=== PATIENT | female | born 1980 | race Caucasian/White ===

== ENCOUNTER 2021-10-06 14:16 | Emergency (ER) | payer MEDICAID, SELFPAY ==
[2021-10-06 14:23] VITALS: BP 156/96; PULSE 83; RESP 18; TEMP 36.8; O2SAT 100
--- NOTE | 2021-10-06 14:30 | DI.CT_ITS ---
Exam(s) CT CHEST PE ABD PELVIS W EXAM: CT CHEST PE ABD PELVIS W CLINICAL HISTORY: Fall, blunt trauma, L chest/LUQ pain. TECHNIQUE: Imaging Protocol: Axial CT angiography was performed with multi-slice acquisition and m ulti-planar and/or 3D reconstructions. CONTRAST MATERIAL: Intravenous: Omnipaque 350 Contrast volume:4 mL Oral: None COMPARISON: No exams were available for comparison FINDINGS: CHEST: AORTA: The diameter of the ascending thoracic aorta is within normal limits. No evidence of dissecti on. No pericardial effusion. Descending thoracic aorta appears unremarkable. No evidence of abdomi nal aortic aneurysm. No dissection or aneurysm of the common and external iliac arteries. Internal iliac arteries are also patent. PULMONARY ARTERIES: There are no intra-arterial filling defects to suggest the presence of acute pulm onary emboli. LUNGS: There is no evidence of pulmonary infarction.Mild dependent markings in both lungs but no conf luent infiltrates. No ominous pulmonary nodules. There are no pleural effusions. MEDIASTINUM: There is no hilar nor mediastinal adenopathy. CARDIAC: Heart size is normal. There is no pericardial effusion. There is no significant shift of t he interventricular septum.Caliber of the thoracic aorta is within normal limits. OSSEOUS: No significant osseous lesions.Evidence of previous right shoulder surgery at the level of t he glenoid fossa.. ABDOMEN: There is no ascites. LIVER: There are no focal hepatic lesions nor dilatation of intrahepatic ducts. GALLBLADDER/BILIARY: No obvious gallbladder pathology. CBD is not dilated. PANCREAS: No evidence of pancreatic mass nor dilatation of the pancreatic duct. SPLEEN: Spleen is not enlarged. There are no intrasplenic lesions. Splenic and portal veins are soria nt. ADRENALS: There are no significant adrenal masses. KIDNEYS:No cysts. No calculi nor hydronephrosis. No solid renal masses. ABDOMINAL AORTA: Abdominal aorta is not enlarged. No dissection LYMPH NODES: There is no retroperitoneal or para-aortic adenopathy. ABDOMINAL WALL/GI: No evidence of significant anterior abdominal wall hernia. No bowel obstruction. PELVIS: LYMPH NODES: There is no intrapelvic nor inguinal adenopathy. GI: No evidence of appendicitis.No evidence of sigmoid diverticulitis. URINARY BLADDER: No calculi nor masses evident REPRODUCTIVE: Uterus normal size. Anteverted. No abnormal adnexal masses. OSSEOUS: No significant osseous lesions. IMPRESSION: 1. No evidence of acute pulmonary emboli nor pulmonary infarction. 2. No evidence of aortic dissection nor pericardial effusion. No evidence of aneurysm of the thoraci c and abdominal aorta. Aortoiliac segments appear unremarkable. No aneurysms of the iliac arteries. 3. No evidence of acute inflammatory process in the abdomen and pelvis. No adenopathy. No ascites. RADIATION DOSE DELIVERED: 870.99mGy.cm Total DLP DATA REPOSITORY: All CT scans at this facility are submitted to the National Radiology Data Registry (NRDR) Dose Index Registry (DIR) with the [employer] (ACR). RADIATION OPTIMIZATION: All CT scans at this facility use at least one of these dose optimization te chniques: automated exposure control; mA and/or kV adjustment per patient size (includes targeted exa ms where dose is matched to clinical indication); or iterative reconstruction.
--- NOTE | 2021-10-06 14:45 | ED.GENADUL_ITS ---
Discharge Plan Disposition Patient Disposition: HOME Condition: Improving Discharge Details Clinical Impression: Left rib fracture Primary Care Provider: Unknown,Unknown ED Provider: Frankie Leigh Home Meds and New Rx's Prescriptions: Continued dextroamphetamine-amphetamine [Adderall] 30 mg Tablet 30 mg PO BID Discharge Instructions Instructions: Rib Fracture (ED) Additional Instructions: Perform deep breaths 10 times an hour while awake, may use incentive spirometer as instructed by nursing staff. Tylenol and ibuprofen as needed for pain. Splint to the area if you feel the need to cough or laugh. Return for any acute concern. Medical Decision Making This is an otherwise healthy 41-year-old female who was [place] the river 2 [place] ago when she slipped on rocks falling and contusing her thigh and then while getting up slipped and fell and contused her left chest and left upper abdomen on high prominent rock. She did not lose consciousness. She has had progressive left chest discomfort and a stabbing-like sensation with deep breaths. No significant abdominal pain and no vomiting. On exam the patient does demonstrate left lateral abdomen tenderness. Must exclude underlying visceral injury, most particularly a bony thorax injury but would consider splenic or underlying lung injury. Patient had screening labs obtained and then referred for CT imaging. Laboratories are reassuring. There is a left fifth rib fracture present. Discussed with patient. She will perform incentive spirometry at home and understands indications to seek reevaluation. HPI General Mode of arrival: ambulatory . Date/Time Provider Initiated Documentation: 10/06/21 14:21 . Limitations to Documentation: no limitations . Information obtained by: patient . History of Present Illness 41 year old F presents to the emergency department with the chief complaint of Left chest discomfort after fall, described as moderate, Quality is described as dull, and is localized to the chest and left. Patient reports no radiation. Patient started experiencing this day(s) and it has been constant. Rest improves symptom(s), Movement worsens symptoms . Patient notes chest pain; denies headaches, nausea/vomiting, shortness of breath, syncope and weakness. Patient did receive the following treatments prior to arrival, none Related Data Home Medications Medication Instructions Recorded Confirmed dextroamphetamine-amphetamine 30 30 mg PO BID 10/06/21 10/06/21 mg tablet (Adderall) Allergies Allergy/AdvReac Type Severity Reaction Status Date / Time No Known Allergies Allergy Unverified 10/06/21 14:25 General Stated Complaint: Trauma JERRY: 3 Review of Systems Narrative: 6 systems reviewed and otherwise negative. Denies head/neck/back injury. PFSH All Active Problems (Updated 10/06/21 @ 16:32 by Frankie Leigh MD) Left rib fracture (Acute) Social History Smoking/Tobacco Use Status: Never Smoking risk assessment performed?: Yes Drug use: Occasionally Substance use type: marijuana Do you feel safe at home: Yes Do you feel safe in your relationship?: Yes Exam Narrative Exam Narrative: GEN: awake, alert, oriented 3. Pleasant, well groomed, interactive. HEAD: Normocephalic, atraumatic ENT: Mucous membranes moist, oropharynx unremarkable, External ear exam unremarkable EYES: PERRL, EOMI NECK: Full ROM, no GRAHAM, no menigismus CHEST/RESP: Left lateral to anterior chest wall tenderness to palpation, no crepitus appreciated, clear to auscultation bilateral, no wheeze/rhonchi/rales CARDIOVASCULAR: RRR, no murmur, rub balaji. 2+ Rad pulse bilateral ABDOMEN: Soft, minimal tenderness left upper quadrant, no rebound or guarding, no mass. +Bowel sounds EXT: Full ROM, no edema, no rash Neuro: Grossly normal neurologic exam, conversant, interactive. Psych: Speech fluent, thoughts congruent, affect normal Course Vital Signs Vital signs: Vital Signs Temperature 36.8 C 10/06/21 14:23 Pulse 83 10/06/21 14:23 Respiratory Rate 18 10/06/21 14:23 Blood Pressure 156/96 H 10/06/21 14:23 Pulse Oximetry 100 10/06/21 14:23 Temperature 36.8 C 10/06/21 14:23 Temperature Source Temporal Artery Scan 10/06/21 14:23 Pulse 83 10/06/21 14:23 Respiratory Rate 18 10/06/21 14:23 Respiratory Effort Non-Labored 10/06/21 14:34 Respiratory Depth Normal 10/06/21 14:34 Respiratory Pattern Normal 10/06/21 14:34 Blood Pressure 156/96 H 10/06/21 14:23 Blood Pressure Position Sitting 10/06/21 14:23 Pulse Oximetry 100 10/06/21 14:23 Oxygen Delivery Method Room Air 10/06/21 14:23 Oxygen Flow Rate 0 10/06/21 14:23 Pain Level 7 10/06/21 14:23 PAWSS Have you Been Recently Intoxicated or Drunk Within the Last 30 days?: No Have you Ever Experienced Previous Episodes of Alcohol Withdrawal?: No Have you ever Experienced Withdrawal Seizures?: No Have you ever Experienced Delirium Tremens(DT)s?: No Have you ever undergone Alcohol Rehabilitation Treatment (i.e, inpt ot outpatient treatment programs)?: No Have you ever Experienced Blackouts?: No Have you ever Combined Alcohol with other Downers within the last 90 days?: No Have you ever Combined Alcohol with any other Substance of Abuse during the last 90 days?: Yes Positive Blood Alcohol level on Presentation? [PCS.BAL]: No Evidence of Increased Autonomic Activity (i.e. HR>120, tremor, sweating, agitation, nausea)?: No Result: 2
[2021-10-06 14:56] VITALS: TEMP 36.5; O2SAT 95
[2021-10-06] MEDS: ACETAMINOPHEN 1,000 MG/100 ML BTL 400 MG IVPB (15:10)
[2021-10-06 15:11] LABS: Abs Immature Grans 0.03 10^3/uL (0.0-0.06); Absolute Basophil Count 0.05 10^3/uL (0.0-0.2); Absolute Eosinophil Count 0.12 10^3/uL (0.0-0.7); Absolute Monocyte Count 0.75 10^3/uL (0.1-0.8); Absolute Neutrophil Count 6.66 10^3/uL (1.2-6.7); Basophils % 0.5; Eosinophils % 1.2; HCT 38.4 % (36.0-46.0); HGB 13.4 g/dL (11.2-15.7); Immature Grans % 0.3; MCH 33.2 pg (27.0-33.0); MCHC 34.9 % (32.0-36.0); MCV 95 fL (80-95); MPV 9.1 fL (8.0-11.0); Monocytes % 7.5; Neutrophils % 66.5; Platelet Count 364 10^3/uL (130-400); RBC 4.04 10^6/uL (3.93-5.22); RDW 12.1 % (11.7-14.6); RDW-SD 42.5 fL; WBC 10.01 10^3/uL (4.4-10.8)
[2021-10-06 15:22] LABS: ALT 34 U/L (14-59); AST 25 U/L (15-37); Albumin 3.5 g/dL (3.4-5.0); Alkaline Phosphatase 74 U/L (46-116); Anion Gap 6.2 mmol/L (3-11); BUN 9 mg/dL (7-18); Bilirubin, Total 0.4 mg/dL (0.2-1.0); CO2 29.8 mmol/L (21.0-32.0); CREATININE 0.7 mg/dL (0.55-1.02); Calcium 8.8 mg/dL (8.5-10.1); Chloride 101 mmol/L (98-107); Glucose 98 mg/dL (74-106); Potassium 4.2 mmol/L (3.5-5.1); Sodium 137 mmol/L (136-145); Total Protein 7.8 g/dL (6.4-8.2)
[2021-10-06] MEDS: Omnipaque 350 MG/ML 100 ML BTL IJ (15:32)
--- NOTE | 2021-10-06 16:23 | DI.VRAD_ITS ---
PROCEDURE INFORMATION: Exam: CTA Chest With Contrast CTA Abdomen With Contrast Exam date and time: 10/06/2021 3:22 PM Age: 41 years old Clinical indication: Left-sided; Abdominal pain; Localized; Left upper quadrant (luq); Patient HX: Fall, blunt trauma, L chest/luq pain TECHNIQUE: Imaging protocol: Computed tomographic angiography of the chest with contrast. Computed tomographic angiography of the abdomen with contrast. 3D rendering (Not supervised by radiologist): MIP and/or 3D reconstructed images were created by the technologist. COMPARISON: No relevant prior studies available. FINDINGS: VASCULATURE: Pulmonary arteries: Normal. No pulmonary emboli. Aorta: No aortic aneurysm. No aortic dissection. Celiac trunk and mesenteric arteries: No occlusion or significant stenosis. Renal arteries: No occlusion or significant stenosis. CHEST: Lungs: Minimal atelectasis left lower lobe posterior costophrenic sulcus. No consolidation. No masses. Pleural spaces: Unremarkable. No pneumothorax. No pleural effusion. Heart: Unremarkable. No cardiomegaly. No pericardial effusion. There is mild displacement of the left lateral 5th rib fracture but I just over 3 mm. No additional rib fractures. No thoracic spine fracture deformity. Mild anterior endplate spurring T3 through T12. ABDOMEN AND PELVIS: Liver: No mass. Gallbladder and bile ducts: Unremarkable. No calcified stones. No ductal dilation. Pancreas: Unremarkable. No mass. No ductal dilation. Spleen: Unremarkable. No splenomegaly. Adrenal glands: Unremarkable. No mass. Kidneys and ureters: Unremarkable. No solid mass. No hydronephrosis. Stomach and bowel: Unremarkable. No obstruction. No mucosal thickening. Intraperitoneal space: Unremarkable. No free air. No significant fluid collection. Lymph nodes: Unremarkable. No enlarged lymph nodes. Bones/joints: Unremarkable. No acute fracture. Soft tissues: Unremarkable. IMPRESSION: Unremarkable CTA chest and abdomen apart from left 5th lateral mildly displaced fracture deformity. Dictated and Authenticated by: Kaden Prasad MD. Ordering:BOWEN David MD
== END 2021-10-06 16:40 | disposition home or self-care (01) ==
PROVIDERS: Emergency Provider Emergency Medicine
DX: S22.32XA Fracture of one rib, left side, initial encounter for closed fracture (principal); W01.0XXA Fall on same level from slipping, tripping and stumbling without subsequent striking against object, initial encounter
CPT/HCPCS: 36415; 71275; 74177; 80053; 96374; 99284; 85025; 99283; J0131; J3490

== ENCOUNTER 2022-05-26 09:37 | Emergency (ER) | payer MEDICAID, SELFPAY ==
[2022-05-26 09:43] VITALS: BP 152/97; PULSE 78; RESP 18; TEMP 36.9; O2SAT 99
[2022-05-26] MEDS: Balanced Salt Solution 15 ML BTL OP (10:51)
[2022-05-26] MEDS: Erythromycin Ophth Oint 3.5 GM TUBE OP (10:51)
[2022-05-26] MEDS: Fluorescein STRIPS 100/BOX 1 MG OP (10:53)
[2022-05-26] MEDS: Tetracaine 0.5% 4 ML BTL OP (10:53)
--- NOTE | 2022-05-26 10:53 | W.ED.GENAD ---
Discharge Plan Disposition Patient Disposition: Home Condition: Stable Discharge Details Clinical Impression: Abrasion of cornea, left Primary Care Provider: Unknown,Unknown ED Provider: Sonny Diamond Home Meds and New Rx's Prescriptions: New amoxicillin-pot clavulanate 875-125 mg tablet 1 tab PO BID Qty: 13 0RF erythromycin 5 mg/gram (0.5 %) ointment 0.5 inch ophthalmic (eye) QID Qty: 3.5 0RF Continued dextroamphetamine-amphetamine [Adderall] 30 mg Tablet 30 mg PO BID multivitamin Capsule 1 cap PO DAILY Discharge Instructions Instructions: Erythromycin (Into the eye), Diphtheria/Acellular Pertussis/Tetanus Booster Vaccine (By injection), Corneal Abrasion (ED) Additional Instructions: Please follow-up with [facility] care. They be happy to see you today and recommend assessment today for corneal bandage. Please take antibiotic as prescribed. Use antibiotic ointment: Apply 0.5 inch ribbon to left cornea 4 times a day for the next 1 week. Please contact your primary care physician to arrange follow-up. Return to the ER immediately for any worsening or new concerning symptoms. Referrals: [facility] [Outside] Medical Decision Making [phone] --41-year-old female here with cat scratch to left eye. Tetracaine applied and patient had significant relief of discomfort. Patient has corneal abrasion on exam. Negative Celso sign. Plan to treat with erythromycin ointment and Augmentin prophylactically. Boostrix was provided. I called and spoke with senior information security engineer on-call at [facility], Dr. Benton, and she be happy to see the patient in follow-up today to apply corneal bandage. She agrees with treatment otherwise. Patient was provided Tylenol for her headache. HPI General Mode of arrival: ambulatory. Date/Time Provider Initiated Documentation: 05/26/22 10:33. Limitations to Documentation: no limitations. Information obtained by: patient. HPI Narrative: 41-year-old female presents with chief complaint of eye injury. Patient notes cat scratched her left eye last night. Eye has been painful. She notes some blurred vision in her left eye. She has associated moderate headache. Related Data Home Medications Medication Instructions Recorded Confirmed dextroamphetamine-amphetamine 30 30 mg PO BID 10/06/21 05/26/22 mg tablet (Adderall) amoxicillin 875 mg-potassium 1 tab PO BID #13 tabs 05/26/22 clavulanate 125 mg tablet erythromycin 5 mg/gram (0.5 %) eye 0.5 inch ophthalmic (eye) QID #3.5 05/26/22 ointment grams multivitamin 1 cap PO DAILY 05/26/22 05/26/22 Previous Rx's Medication Instructions Recorded amoxicillin 875 mg-potassium 1 tab PO BID #13 tabs 05/26/22 clavulanate 125 mg tablet erythromycin 5 mg/gram (0.5 %) eye 0.5 inch ophthalmic (eye) QID #3.5 05/26/22 ointment grams Allergies Allergy/AdvReac Type Severity Reaction Status Date / Time No Known Allergies Allergy Unverified 05/26/22 09:45 General Stated Complaint: EyeProblem JERRY: 4 Review of Systems Eyes Eyes: Reports as per [facility] PFSH All Active Problems (Updated 05/26/22 @ 11:00 by Sonny Diamond MD) Abrasion of cornea, left (Acute) Social History Smoking/Tobacco Use Status: Current-Occasional Tobacco Type: cigarettes Years smoked: 17 Smoking risk assessment performed?: Yes Drug use: Occasionally Substance use type: marijuana Do you feel safe at home: Yes Do you feel safe in your relationship?: Yes Exam Eyes Alignment and Position: alignment normal Periorbital: periorbital findings normal Eyelids: eyelids normal Conjunctivae: conjunctivae normal Sclera: sclerae normal Cornea: corneas abnormal on the left fluorescein used and abrasion central and curved; with no foreign body noted Pupils: PERRL EOM: EOM intact bilaterally Course Vital Signs Vital signs: Vital Signs Temperature 36.9 C 05/26/22 09:43 Pulse 78 05/26/22 09:43 Respiratory Rate 18 05/26/22 09:43 Blood Pressure 152/97 H 05/26/22 09:43 Pulse Oximetry 99 05/26/22 09:43 Temperature 36.9 C 05/26/22 09:43 Temperature Source Tympanic 05/26/22 09:43 Pulse 78 05/26/22 09:43 Respiratory Rate 18 05/26/22 09:43 Respiratory Effort Normal, Non-Labored 05/26/22 09:45 Blood Pressure 152/97 H 05/26/22 09:43 Pulse Oximetry 99 05/26/22 09:43 Oxygen Delivery Method Room Air 05/26/22 09:43 Oxygen Flow Rate 0 05/26/22 09:43 PAWSS Have you Been Recently Intoxicated or Drunk Within the Last 30 days?: No Have you Ever Experienced Previous Episodes of Alcohol Withdrawal?: No Have you ever Experienced Withdrawal Seizures?: No Have you ever Experienced Delirium Tremens(DT)s?: No Have you ever undergone Alcohol Rehabilitation Treatment (i.e, inpt ot outpatient treatment programs)?: No Have you ever Experienced Blackouts?: No Have you ever Combined Alcohol with other Downers within the last 90 days?: No Have you ever Combined Alcohol with any other Substance of Abuse during the last 90 days?: No Positive Blood Alcohol level on Presentation? [PCS.BAL]: No Evidence of Increased Autonomic Activity (i.e. HR>120, tremor, sweating, agitation, nausea)?: No Result: 0
[2022-05-26] MEDS: Amoxicillin 875/Clav. 125 TAB PO (11:19)
[2022-05-26] MEDS: Acetaminophen 325 MG TAB 650 MG PO (11:19)
== END 2022-05-26 11:22 | disposition home or self-care (01) ==
PROVIDERS: Emergency Provider Student in an Organized Health Care Education/Training Program
DX: S05.02XA Injury of conjunctiva and corneal abrasion without foreign body, left eye, initial encounter (principal); W55.03XA Scratched by cat, initial encounter; Z23 Encounter for immunization
CPT/HCPCS: 90471; 99283; 99284

== ENCOUNTER 2022-12-25 12:10 | Emergency (ER) | payer MEDICAID, SELFPAY ==
[2022-12-25 12:20] VITALS: BP 130/89; PULSE 114; RESP 18; TEMP 37.1; O2SAT 100
[2022-12-25 12:54] LABS: Source Nasal/Nares
[2022-12-25 13:13] VITALS: RESP 20
[2022-12-25 13:15] VITALS: PULSE 97; RESP 20; TEMP 36.9; O2SAT 100
--- NOTE | 2022-12-25 13:19 | ED.GENADUL_ITS ---
Discharge Plan Disposition Patient Disposition: Home Condition: Stable Discharge Details Clinical Impression: Pneumonia ED Provider: Sonny Diamond Home Meds and New Rx's Prescriptions: New doxycycline hyclate 100 mg tablet 100 mg PO BID Qty: 10 0RF albuterol sulfate [Proventil HFA] 90 mcg/actuation HFA aerosol inhaler 2 puff inhalation Q6H PRNQty: 8.5 0RF Continued dextroamphetamine-amphetamine [Adderall] 30 mg Tablet 30 mg PO BID multivitamin Capsule 1 cap PO DAILY Discharge Instructions Instructions: How to Stop Smoking (ED), Pneumonia (ED) Additional Instructions: Please drink plenty of fluid and allow for plenty of rest. Take full course of antibiotic as prescribed. You need to establish care with a primary care physician. Please be sure to discuss smoking cessation with your doctor. Return to the ER immediately for any worsening or new concerning symptoms. Discharge Data Discharge Date/Time-TO BE ENTERED AT DEPARTURE: 12/25/22 14:01 Medical Decision Making 1323 -- 42-year-old female here with progressive respiratory illness over the past 5 days, now with productive cough and associated shortness of breath with wheezing. Considered COVID. Antigen testing negative. I will send PCR. Patient has bilateral expiratory wheeze. She has fine rales noted left lower lobe. No concern about early pneumonia. Plan to initiate treatment with doxycycline. We will give albuterol neb and reassess. Discussed smoking cessation with the patient. She does seem motivated. Patient will need follow-up with PCP. She does not currently have a PCP. HPI General Mode of arrival: ambulatory . Date/Time Provider Initiated Documentation: 12/25/22 12:35 . Limitations to Documentation: no limitations . Information obtained by: patient . HPI Narrative: 42-year-old female smoker here with chief complaint chest congestion. Patient notes initially had head cold 5 days ago. Symptoms have progressed. She now has associated body aches, chest congestion with shortness of breath and cough. Cough is intermittently productive of green sputum. She notes subjective fever last night. Symptoms worsening. Patient does note younger children sick with respiratory illness 1 to 2 weeks ago and symptoms have resolved for them. Related Data Home Medications Medication Instructions Recorded Confirmed dextroamphetamine-amphetamine 30 30 mg PO BID 10/06/21 12/25/22 mg tablet (Adderall) multivitamin 1 cap PO DAILY 05/26/22 12/25/22 albuterol sulfate 90 mcg/actuation 2 puff inhalation Q6H PRN #8.5 12/25/22 aerosol inhaler (Proventil HFA) grams doxycycline hyclate 100 mg tablet 100 mg PO BID #10 tabs 12/25/22 Previous Rx's Medication Instructions Recorded albuterol sulfate 90 mcg/actuation 2 puff inhalation Q6H PRN #8.5 12/25/22 aerosol inhaler (Proventil HFA) grams doxycycline hyclate 100 mg tablet 100 mg PO BID #10 tabs 12/25/22 Allergies Allergy/AdvReac Type Severity Reaction Status Date / Time No Known Allergies Allergy Unverified 12/25/22 12:22 General Stated Complaint: GenMedical JERRY: 3 Review of Systems Constitutional Constitutional: Denies fever(s) Cardiovascular Cardiovascular: Denies chest pain and Reports dyspnea Respiratory Respiratory: Reports cough and Reports dyspnea PFSH All Active Problems (Updated 12/25/22 @ 13:32 by Sonny Diamond MD) Pneumonia (Acute) Social History Smoking/Tobacco Use Status: Current-Occasional Tobacco Type: cigarettes Years smoked: 17 Smoking risk assessment performed?: Yes Drug use: Occasionally Substance use type: marijuana Housing: house Do you feel safe at home: Yes Do you feel safe in your relationship?: Yes Exam Const General: cooperative and no acute distress HENMT Mouth: moist mucous membranes Eyes Conjunctivae: normal conjunctivae Sclera: normal sclerae Neck Neck: trachea midline and supple Resp Effort & Inspection: normal respiratory effort Auscultation: rales on the left at the base, no rhonchi and wheezes expiratory wheezes (b/l) Cardio Rate: regular rate and not tachycardic Rhythm: regular rhythm GI Palpation: soft, not firm, no guarding, no masses, not rigid and nontender Skin General skin exam: no rashes or lesions noted Neuro General: patient alert, patient awake and tone normal Extrem General: no calf tenderness and no edema Psych Appearance: grossly normal Mental Status: mental status grossly normal Speech and Movement: speech and movement normal Course Vital Signs Vital signs: Vital Signs Temperature 37.1 C 12/25/22 12:20 Pulse 114 H 12/25/22 12:20 Respiratory Rate 18 12/25/22 12:20 Blood Pressure 130/89 12/25/22 12:20 Pulse Oximetry 100 12/25/22 12:20 Temperature 36.9 C 12/25/22 13:15 Temperature Source Temporal Artery Scan 12/25/22 12:20 Pulse 97 H 12/25/22 13:15 Respiratory Rate 20 12/25/22 13:15 Respiratory Effort Normal 12/25/22 13:14 Blood Pressure 130/89 12/25/22 12:20 Blood Pressure Position Sitting 12/25/22 12:20 Pulse Oximetry 100 12/25/22 13:15 Oxygen Delivery Method Room Air 12/25/22 12:20 Oxygen Flow Rate 0 12/25/22 12:20 Lab/Test Results Lab/Test Results: Laboratory Tests Range/Units 12/25/22 12:47 COVID-19 Source Nasal/Nares PAWSS Have you Been Recently Intoxicated or Drunk Within the Last 30 days?: No Have you Ever Experienced Previous Episodes of Alcohol Withdrawal?: No Have you ever Experienced Withdrawal Seizures?: No Have you ever Experienced Delirium Tremens(DT)s?: No Have you ever undergone Alcohol Rehabilitation Treatment (i.e, inpt ot outpatient treatment programs)?: No Have you ever Experienced Blackouts?: No Have you ever Combined Alcohol with other Downers within the last 90 days?: No Have you ever Combined Alcohol with any other Substance of Abuse during the last 90 days?: No Positive Blood Alcohol level on Presentation? [PCS.BAL]: No Evidence of Increased Autonomic Activity (i.e. HR>120, tremor, sweating, agitation, nausea)?: No Result: 0
[2022-12-25] MEDS: Doxycycline Hyclate 100 MG CAP PO (13:21)
[2022-12-25] MEDS: Inhaler, Assist Device 1 EACH MC (13:22)
[2022-12-25] MEDS: Albuterol HFA 8 GM 60 PUFF INH IH (13:22)
[2022-12-25] MEDS: Albuterol 2.5 MG/3 ML INH SOLN VIAL UPD (13:23)
[2022-12-25 13:29] LABS: COVID-19 PCR Negative (Negative)
--- NOTE | 2022-12-25 13:40 | NUR.NOTE ---
Referral given to Care Management for needs PCP, establish care; routine follow up. Nursing Note:
[2022-12-25 13:46] VITALS: BP 128/81; PULSE 98; RESP 16; O2SAT 100
== END 2022-12-25 14:01 | disposition home or self-care (01) ==
PROVIDERS: Emergency Provider Student in an Organized Health Care Education/Training Program
DX: J18.9 Pneumonia, unspecified organism (principal); F17.210 Nicotine dependence, cigarettes, uncomplicated
CPT/HCPCS: 87426; 87635; 94640; 99283; J7613

== ENCOUNTER 2023-07-23 08:33 | Emergency (ER) | payer MEDICAID, SELFPAY ==
[2023-07-23 08:41] VITALS: BP 141/96; PULSE 73; RESP 18; TEMP 36.7; O2SAT 100
--- NOTE | 2023-07-23 08:45 | ED.GENADUL_ITS ---
Discharge Plan Disposition Patient Disposition: Home Condition: Good Discharge Details Clinical Impression: Abrasion, corneal Primary Care Provider: Unknown,Unknown ED Provider: Jennifer hCaudhari Home Meds and New Rx's Prescriptions: Continued dextroamphetamine-amphetamine [Adderall] 30 mg Tablet 30 mg PO BID doxycycline hyclate 100 mg tablet 100 mg PO BID Qty: 10 0RF albuterol sulfate [Proventil HFA] 90 mcg/actuation HFA aerosol inhaler 2 puff inhalation Q6H PRNQty: 8.5 0RF multivitamin Capsule 1 cap PO DAILY Discharge Instructions Instructions: Corneal Abrasion (ED) Additional Instructions: You are to go from the emergency department directly to [facility] while they were provide continued care and antibiotics. You do have an abrasion directly over your pupil. She develop any new or worsening symptoms please seek care urgently once again. Stand Alone Forms: Work Release Referrals: [facility] [Outside] [facility] General Date/Time Provider Initiated Documentation: 07/23/23 08:45 . Limitations to Documentation: no limitations . Information obtained by: patient, RN notes reviewed and old records reviewed . History of Present Illness 42 year old F presents to the emergency department with the chief complaint of Foreign body sensation left eye, described as moderate and similar to prior episodes, Quality is described as burning, and is localized to the eyes. Patient reports no radiation. Patient started experiencing this day(s) (1) and it has been constant. No relieving factors improve symptom(s), No exacerbating factors reported . Patient notes no other symptoms.. Patient did receive the following treatments prior to arrival, NSAID Related Data Home Medications Medication Instructions Recorded Confirmed dextroamphetamine-amphetamine 30 30 mg PO BID 10/06/21 12/25/22 mg tablet (Adderall) multivitamin 1 cap PO DAILY 05/26/22 12/25/22 albuterol sulfate 90 mcg/actuation 2 puff inhalation Q6H PRN #8.5 12/25/22 aerosol inhaler (Proventil HFA) grams doxycycline hyclate 100 mg tablet 100 mg PO BID #10 tabs 12/25/22 Previous Rx's Medication Instructions Recorded albuterol sulfate 90 mcg/actuation 2 puff inhalation Q6H PRN #8.5 12/25/22 aerosol inhaler (Proventil HFA) grams doxycycline hyclate 100 mg tablet 100 mg PO BID #10 tabs 12/25/22 Allergies Allergy/AdvReac Type Severity Reaction Status Date / Time No Known Allergies Allergy Unverified 12/25/22 12:22 General Stated Complaint: EyeProblem JERRY: 3 Review of Systems Constitutional Constitutional: Reports as per HPI, Denies chills and Denies fever(s) Eyes Eyes: Reports as per HPI Cardiovascular Cardiovascular: Reports as per HPI and Denies lightheadedness Integumentary/Breasts Skin/Breast: Reports as per HPI, Denies rash, Denies skin pain and Denies skin swelling Exam Const General: cooperative, healthy appearing, uncomfortable, no acute distress, well developed and well groomed Nutritional Appearance: average body habitus and well nourished Orientation: alert, awake and oriented x3 HENMT Head: normal to inspection, normocephalic and atraumatic Ears: external ears normal General nose exam: external nose normal and nares normal Face and sinus: normal facial exam Eyes Visual Coleman: normal visual coleman by confrontation Alignment and Position: alignment normal and position normal Periorbital: periorbital findings normal Eyelids: eyelids normal (holding left shut with discomfort) Conjunctivae: conjunctival abnormality left conjunctival injection; without discharge Cornea: corneas abnormal on the left fluorescein used and abrasion and fluorescein used Pupils: PERRL, normal by confrontation and accommodation normal EOM: EOM intact bilaterally Eyes/upper lids images: 2 1. Area of flouroscein uptake, no laceration, negative Celso sign. No remaining FB. Lid everted, no laceration or FB appreciated. Resp Effort & Inspection: normal respiratory effort, able to speak in complete sentences and no respiratory distress Skin General skin exam: no rashes or lesions noted Neuro General: patient alert, patient awake and patient oriented x3 Cognition: normal cognition Speech: speech normal Gait: normal gait Course Vital Signs Vital signs: Vital Signs Temperature 36.7 C 07/23/23 08:41 Pulse 73 07/23/23 08:41 Respiratory Rate 18 07/23/23 08:41 Blood Pressure 141/96 H 07/23/23 08:41 Pulse Oximetry 100 07/23/23 08:41 Temperature 36.7 C 07/23/23 08:41 Pulse 73 07/23/23 08:41 Respiratory Rate 18 07/23/23 08:41 Blood Pressure 141/96 H 07/23/23 08:41 Pulse Oximetry 100 07/23/23 08:41 Oxygen Delivery Method Room Air 07/23/23 08:41 Oxygen Flow Rate 0 07/23/23 08:41 Medical Decision Making Patient is a pleasant 42-year-old female, otherwise healthy, presenting today with chief complaint of left eye pain. She reports that last night she was applying mascara when she accidentally stabbed herself with the mascara pen. She denies other injury at the time of the incident. States that since then she is felt like there is a piece of concrete in there. The pain and tearing have been obscuring her vision which has felt slightly blurred. No fevers or chills. Tetanus is up-to-date. She was here about 8 months ago per patient's report, for eye issue. Reports that she received tetanus update at that time. She does not use contacts or corrective lenses. On exam, patient appears uncomfortable with her left eye held shut, tearing. Otherwise, nontoxic. Pupils are equal, round, reactive. No visible FB, full EOM without pain, pain appears to occur with blinking. Vision was 20/70 on the affected side, patient reports some blurring in significant tearing. No purulent discharge. Everted the lid, no laceration or retained foreign bodies noted. Fluorescein was used, uptake noted at the 9 to 11 o'clock position directly over the pupil in circular fashion, likely the end of the wand. Negative Celso sign. No evidence to suggest laceration into the anterior chamber, no violation of the posterior chamber. Pain was immediately relieved with tetracaine. Patient is up-to-date on tetanus. Will apply antibiotic ointment, augment her NSAID with Tylenol and have her follow-up with [facility]. Patient reports that when she was here last for similar incident, she was seen by [facility] who was able to apply a contact lens which aided with discomfort significantly, she is questioning if she may be able to see them today to discuss this once again as this worked so well for her last time. Called [facility], they are able to see her immediately. Questioned if I could apply abx ointment, they advised they would take care of that and see her now. Discussed this recommendation with the patient. She is going to go directly from here to [facility] for continued care. Return precautions were discussed. Work note given. All of her questions and concerns were addressed and she is in agreement this plan. Quality:SDOH Health Related Social Needs: 2 No Data to Display PFSH All Active Problems (Updated 07/23/23 @ 09:12 by PANKAJ Mitchell) Abrasion, corneal (Acute) Social History Smoking/Tobacco Use Status: Current-Occasional Tobacco Type: cigarettes Years smoked: 17 Smoking risk assessment performed?: Yes Drug use: Occasionally Substance use type: marijuana Housing: house Do you feel safe at home: Yes Do you feel safe in your relationship?: Yes
[2023-07-23 08:53] VITALS: BP 141/96; PULSE 73; RESP 18; TEMP 36.7; O2SAT 100
[2023-07-23] MEDS: Fluorescein STRIPS 100/BOX 1 MG OP (08:56)
[2023-07-23] MEDS: Tetracaine 0.5% 4 ML BTL OP (08:56)
== END 2023-07-23 09:19 | disposition home or self-care (01) ==
LOC: ER 09:20
PROVIDERS: Emergency Provider Physician Assistant
DX: S05.02XA Injury of conjunctiva and corneal abrasion without foreign body, left eye, initial encounter; W22.8XXA Striking against or struck by other objects, initial encounter; Y93.89 Activity, other specified
CPT/HCPCS: 99283

== ENCOUNTER 2024-07-17 10:16 | Emergency (ER) | payer MEDICAID, SELFPAY ==
[2024-07-17 10:24] VITALS: BP 147/89; PULSE 100; RESP 18; TEMP 36.6; O2SAT 98
--- NOTE | 2024-07-17 10:47 | ED.GENADUL_ITS ---
Discharge Plan Disposition Patient Disposition: Home Condition: Stable Discharge Details Clinical Impression: Pruritic rash, Contact dermatitis due to poison melvina Primary Care Provider: Unknown,Unknown ED Provider: Sonny Diamond Home Meds and New Rx's Prescriptions: New prednisone 20 mg tablet 40 mg PO DAILY Qty: 10 0RF fexofenadine [Nina Allergy] 180 mg tablet 180 mg PO DAILY PRN (Reason: allergy symptoms) Qty: 30 0RF Continued dextroamphetamine-amphetamine [Adderall] 30 mg Tablet 30 mg PO BID magnesium 500 mg tablet 500 mg PO DAILY Discontinued albuterol sulfate [Proventil HFA] 90 mcg/actuation HFA aerosol inhaler 2 puff inhalation Q6H PRNQty: 8.5 0RF multivitamin Capsule 1 cap PO DAILY Discharge Instructions Instructions: Poison Melvina, Poison [place], Poison [place] ED Additional Instructions: Use Nina as prescribed. You may wish to substitute Benadryl at night. Use prednisone as prescribed. Please follow-up with your primary care physician. Return to the emergency department immediately for any worsening or new concerning symptoms. HPI General Mode of arrival: ambulatory . Date/Time Provider Initiated Documentation: 07/17/24 10:25 . Limitations to Documentation: no limitations . Information obtained by: patient . HPI Narrative: HISTORY OF PRESENT ILLNESS The patient presents for evaluation of a rash. The rash began 1.5 weeks ago on his wrist and has spread to his face, nose, eyes, hands, and right posterior shoulder. Facial involvement started yesterday. The rash has a bubbly appearance similar to poison melvina and scratching results in bumps within seconds. She has been outdoors prior to the onset. The rash disrupts sleep due to itching. Cortisone cream provides temporary relief for about an hour. She has a history of similar rashes, but none as severe. She discontinued herbal supplements upon noticing the rash but continues to consume herbal tea. Related Data Home Medications ?Medication ?Instructions ?Recorded ?Confirmed dextroamphetamine-amphetamine 30 30 mg PO BID 10/06/21 07/17/24 mg tablet (Adderall) fexofenadine 180 mg tablet 180 mg PO DAILY PRN allergy 07/17/24 (Nina Allergy) symptoms #30 tabs magnesium 500 mg tablet 500 mg PO DAILY 07/17/24 07/17/24 prednisone 20 mg tablet 40 mg (2 x 20 mg) PO DAILY #10 tabs 07/17/24 Previous Rx's ?Medication ?Instructions ?Recorded fexofenadine 180 mg tablet 180 mg PO DAILY PRN allergy 07/17/24 (Nina Allergy) symptoms #30 tabs prednisone 20 mg tablet 40 mg (2 x 20 mg) PO DAILY #10 tabs 07/17/24 Allergies Allergy/AdvReac Type Severity Reaction Status Date / Time bupropion (From Wellbutrin) Allergy Severe Anaphylaxis Verified 07/17/24 10:28 General Stated Complaint: RashLesion JERRY: 4 Exam Const General: cooperative and no acute distress [facility] Mouth: moist mucous membranes Eyes Conjunctivae: normal conjunctivae Sclera: normal sclerae Resp Auscultation: clear to auscultation bilaterally, no rales, no rhonchi and no wheezes Cardio Rate: regular rate and not tachycardic Rhythm: regular rhythm Skin Rashes: rashes noted (urticaria forearms bilateral, excoriated lesions left mallar face and nares) Neuro General: patient alert, patient awake and tone normal Extrem General: no edema Course Vital Signs Vital signs: Vital Signs Temperature 36.6 C 07/17/24 10:24 Pulse 100 H 07/17/24 10:24 Respiratory Rate 18 07/17/24 10:24 Blood Pressure 147/89 H 07/17/24 10:24 Pulse Oximetry 98 07/17/24 10:24 Temperature 36.6 C 07/17/24 10:24 Temperature Source Oral 07/17/24 10:24 Pulse 100 H 07/17/24 10:24 Respiratory Rate 18 07/17/24 10:24 Blood Pressure 147/89 H 07/17/24 10:24 Pulse Oximetry 98 07/17/24 10:24 Medical Decision Making ASSESSMENT AND PLAN Initial Assessment: 43-year-old female presents with a rash that started on the wrist and spread to the face, nose, and eyes. The rash is itchy and has a bubbly appearance similar to poison melvina. Differential Diagnosis: - Poison Melvina: Considered due to the timing and distribution of the rash. Plan includes antihistamines and prednisone. - Staph Infection: Less likely due to lack of pain and typical appearance. ED Course: - Examined rash distribution on face, wrist, and hands. - Discussed potential irritants and exposure history. - Recommended antihistamine for itching. Suggested non-sedating antihistamines like Nina during the day. Benadryl at night. - Provided prescription for Nina. - Discussed option of a 5-day course of prednisone 40 mg daily if symptoms persist. Patient elects to treat with prednisone given severity of itching. Final Assessment: Rash likely due to contact with an irritant such as poison melvina. Non-infectious. Treatment includes antihistamines and prednisone. Clinical Impression: - Rash Disposition: - Discharge - Follow-Up: Monitor symptoms and start prednisone if antihistamines are ineffective. MDM Components Evaluation: - Number of Differential Diagnoses or Management Options: Poison Melvina, Staph Infection - Amount and Complexity of Data Reviewed: Patient history, physical examination - Risk of Complication and Morbidity or Mortality: Low risk, primarily discomfort and potential for spreading rash This document was written with the assistance of SATHISH Carter. The patient consented to its use. Quality:SDOH Health Related Social Needs: No Data to Display PFSH All Active Problems Contact dermatitis due to poison melvina (Acute) Pruritic rash (Acute) Social History Smoking/Tobacco Use Status: Current-Occasional Tobacco Type: cigarettes Years smoked: 17 Smoking risk assessment performed?: Yes Alcohol Intake: current Alcohol Intake frequency: holidays/special occasions only Drug use: Occasionally Substance use type: marijuana Housing: house Do you feel safe at home: Yes Do you feel safe in your relationship?: Yes
== END 2024-07-17 10:54 | disposition home or self-care (01) ==
LOC: ER 10:59
PROVIDERS: Emergency Provider Student in an Organized Health Care Education/Training Program
DX: L23.7 Allergic contact dermatitis due to plants, except food (principal); F17.210 Nicotine dependence, cigarettes, uncomplicated
CPT/HCPCS: 99283